=== PATIENT | male | born 1995 | race Caucasian/White ===

== ENCOUNTER 2024-02-25 14:39 | Emergency (ER) | payer BC ==
[~2024-02-25] VITALS: Ht 177.8 cm; Wt 104.3 kg
[2024-02-25 14:47] VITALS: O2SAT 98
[2024-02-25] MEDS ORDERED: IBUP-2029 MT (16:37)
[2024-02-25 17:06] VITALS: BP 140/94; PULSE 78; RESP 20; TEMP 36.61404; O2SAT 98
[2024-02-25] MEDS: IBUPROFEN 600MG TABLET PO ONE (17:06)
== END 2024-02-25 17:07 | disposition home or self-care (01) ==
LOC: ER 14:39
DX: R07.89 Other chest pain (principal); Z98.890 Other specified postprocedural states
CPT/HCPCS: 71045; 93005; 99283